=== PATIENT | male | born 1950 | race Caucasian/White ===

== ENCOUNTER 2018-05-08 20:21 | Emergency (ER) | payer MEDICARE ==
[2018-05-08] MEDS ORDERED: Lidocaine 2% with EPINEPHrine 1:100,000 20 ML MDV INJECT ONE (20:40)
--- NOTE | 2018-05-08 20:57 | EDM.PDOC ---
ED HPI GENERAL MEDICAL PROBLEM - General Chief Complaint: Head Injury Stated Complaint: FALL/HEAD INJURY Time Seen by Provider: 05/08/18 20:25 Source of Information: Reports: Patient, EMS, EMS Notes Reviewed History Limitations: Reports: No Limitations - History of Present Illness INITIAL COMMENTS - FREE TEXT/NARRATIVE: Pt was brought in by EMS. According to patient he was at gas station and he slipped on a puddle of water and fell backwards and hit his head hard. Sustained a cut over the back of the head. Also he claims he has been bleeding form his right ear since the fall. No loss of consciousness. No vomiting, but has been slightly nauseous and a dull headache. Does c/o vertigo if he moves his head. No blurry vision . No neck pain. No weakness in the extremities. No tingling or numbness. No other injuries or pain.Pt's last tetanus was 2011. Pt did have recurrent infection in his right ear in the past.Pt has had C-spine fusion and cannot move his neck, but no neck pain or stiffness. Onset: Today Onset Date: 05/08/18 Onset Time: 20:00 Location: Reports: Head Quality: Reports: Ache Severity: Mild Associated Symptoms: Reports: Headaches, Nausea/Vomiting. Denies: Confusion, Chest Pain, Cough, Diaphoresis, Fever/Chills, Malaise, Rash, Seizure, Shortness of Breath, Syncope, Weakness Posterior Headache Pain Score (Numeric/FACES): 7 - Related Data Allergies Allergy/AdvReac Type Severity Reaction Status Date / Time No Known Allergies Allergy Verified 05/08/18 20:27 Home Meds: Home Meds Aspirin 81 mg PO DAILY 05/08/18 [History] FLUoxetine [PROzac] 10 mg PO DAILY 05/08/18 [History] Pantoprazole [ProTONIX] 40 mg PO BIDMEALS 05/08/18 [History] busPIRone [Buspar] 5 mg PO BID 05/08/18 [History] ED ROS GENERAL - Review of Systems Review Of Systems: See Below Constitutional: Denies: Fever, Chills, Malaise, Weakness HEENT: Reports: Vertigo, Other (bleeding form rigth EAC. Actively. No CSF in the blood.). Denies: Ear Discharge, Ear Pain, Rhinitis, Throat Pain, Throat Swelling, Vision Change Respiratory: Denies: Shortness of Breath, Wheezing, Cough, Sputum Cardiovascular: Denies: Chest Pain, Lightheadedness Endocrine: Denies: Fatigue GI/Abdominal: Denies: Abdominal Pain, Constipation, Diarrhea, Difficulty Swallowing, Flatus, Nausea, Vomiting : Denies: Dysuria, Flank Pain Musculoskeletal: Denies: Joint Pain, Joint Swelling Skin: Denies: Bruising, Pruritis, Rash ED EXAM, HEAD INJURY - Physical Exam Exam: See Below Exam Limited By: No Limitations General Appearance: Alert, WD/WN, No Apparent Distress Head: Normocephalic, Scalp Lacerations (2cm laceration over the occipital region , actively bleeding. No bony deformity or crepitus felt.). No: Facial Abrasions , Facial Ecchymosis, Facial Lacerations Nexus Criteria: No: Posterior, Midline Cervical Tenderness, Evidence of Intoxication, Altered Level of Consciousness, Focal Neurological Deficit, Painful Distraction Injuries Eyes: Bilateral Eye: EOMI, PERRL Ears: Normal External Exam, Normal Canal, Hearing Grossly Normal, TM Blood. No : Mastoid Swelling, Mastoid Tenderness Nose: Normal Inspection, Normal Mucousa, No Blood. No: Nasal Deformity, Nasal Discharge Throat/Mouth: Normal Inspection, Normal Lips, Normal Teeth, Normal Gums, Normal Oropharynx, Normal Voice, No Airway Compromise Neck: Non-Tender, Normal Alignment, Normal Inspection, Limited Range of Motion ( from C spine fusion) Respiratory: No Respiratory Distress, Lungs Clear, Normal Breath Sounds, No Accessory Muscle Use, Chest Non-Tender Cardiovascular: Normal Peripheral Pulses, Regular Rate, Rhythm, No Edema, No Gallop, No JVD, No Murmur, No Rub GI/Abdominal Exam: Normal Bowel Sounds, Soft, Non-Tender, No Organomegaly, No Distention, No Abnormal Bruit, No Mass Extremities: Normal Inspection, Normal Range of Motion, Non-Tender, No Pedal Edema, Normal Capillary Refill Neurologic: ice guard skating rink II-XII nml As Tested, No Motor/Sensory Deficits, Alert, Normal Mood/Affect, Oriented x 3. No: Sensory Deficit Skin: Normal Color - Karol Coma Score Best Eye Response ([place]): (4) Open Spontaneously Best Verbal Response (Karol): (5) Oriented Best Motor Response ([place]): (6) Obeys Commands Karol Total: 15 ED LACERATION/WOUND & JENI PROC - Laceration/Wound Repair Head Lac/wound length in cm: 2 (occipital) Appearance: Linear Distal NVT: Neuro & Vascular Intact Anesthetic Type: Local Local Anesthesia - Lidocaine (Xylocaine): 1% with EPI Local Anesthetic Volume: 2cc Skin Prep: Providone-Iodine (Betadine) Exploration/Debridement/Repair: Wound Explored Closed with: Dahlia # of Sutures: 5 Tetanus Status Addressed: Yes Complications: No Course - Vital Signs Text/Narrative:: Pt has sustained a 2cm laceration over the occiput, which was cleaned and 5 dahlia applied and the bleeding is under control. Pt does have active bleeding form his right EAC. No CSF leak noted. Pt has headache, which he rates at 7/10 and vertigo.His GCS is 15. CT head does show right temporal fracture with blood in the right mastoid air cells. Also he has sustained sub-arachanoid bleed with Small 3mm sub-dural hematoma. CT C-spine is negative for acute fracture. Chest Xray 1 view portable appears normal. Pt has received 1 gm IV rocephin, as he has skull fracture. And Zofran 4mg IV times one. I did contact [facility] and discuss patient with neurosurgeon, , Trauma Surgeon and also have discussed patient with Emergency room physician Dr. Morales. has agreed to accept patient. Pt's GCS is 15, he is c/o of headache is worsening, Will give him dilaudid 0.5mg IV. Pt is hemodynamically and neurologically stable. Pt will be transferred to [facility] by [facility] flight. Further care per Dr. Morales. Last Recorded V/S: Last Vital Signs Temp 97.2 F 05/08/18 20:24 Pulse 70 05/08/18 22:01 Resp 16 05/08/18 22:01 BP 165/83 H 05/08/18 22:01 Pulse Ox 98 05/08/18 22:01 - Orders/Labs/Meds Orders: Active Orders 24 hr Category Date Time Status Cervical Spine wo Cont [CT] Stat Exams 05/08/18 20:51 Ordered Chest 1V Frontal [CR] Stat Exams 05/08/18 22:33 Ordered Head wo Cont [CT] Stat Exams 05/08/18 20:36 Taken cefTRIAXone [Rocephin] 1 gm Med 05/08/18 22:33 Ordered Sodium Chloride 0.9% [Normal Saline] 50 ml IV ONETIME Medication Orders Ceftriaxone Sodium 1 gm/ (Sodium Chloride) 50 mls @ 100 mls/hr IV ONETIME ONE Stop: 05/08/18 23:02 Meds: Medications Generic Name Dose Route Start Last Admin Trade Name Floyd PRN Reason Stop Dose Admin Ceftriaxone Sodium 1 gm/ 50 mls @ 100 mls/hr 05/08/18 22:33 Sodium Chloride IV 05/08/18 23:02 ONETIME ONE Departure - Departure Time of Disposition: 11:30 Disposition: DC/Tfer to Acute Hospital 02 Condition: Fair Clinical Impression: Scalp laceration, Subarachnoid hemorrhage, Subdural hemorrhage, Temporal bone fracture - Discharge Information *PRESCRIPTION DRUG MONITORING PROGRAM REVIEWED*: Not Applicable *COPY OF PRESCRIPTION DRUG MONITORING REPORT IN PATIENT LUISA: Not Applicable Instructions: Head Injury, Adult Forms: ED Department Discharge - Problem List & Annotations (1) Scalp laceration SNOMED Code(s): 470632719 Code(s): S01.01XA - LACERATION WITHOUT FOREIGN BODY OF SCALP, INITIAL ENCOUNTER Status: Acute Current Visit: Yes (2) Subarachnoid hemorrhage SNOMED Code(s): 962264255 Code(s): I60.9 - NONTRAUMATIC SUBARACHNOID HEMORRHAGE, UNSPECIFIED Status: Acute Current Visit: Yes (3) Subdural hemorrhage SNOMED Code(s): 37325471 Code(s): I62.00 - NONTRAUMATIC SUBDURAL HEMORRHAGE, UNSPECIFIED Status: Acute Current Visit: Yes (4) Temporal bone fracture SNOMED Code(s): 95177501 Code(s): S02.19XA - OTH FRACTURE OF BASE OF SKULL, INIT FOR CLOS FX Status : Acute Current Visit: Yes - Problem List Review Problem List Initiated/Reviewed/Updated: Yes - My Orders Last 24 Hours: My Active Orders 05/08/18 20:36 Head wo Cont [CT] Stat 05/08/18 20:51 Cervical Spine wo Cont [CT] Stat 05/08/18 22:33 Chest 1V Frontal [CR] Stat cefTRIAXone [Rocephin] 1 gm Sodium Chloride 0.9% [Normal Saline] 50 ml IV ONETIME - Assessment/Plan Last 24 Hours: My Active Orders 05/08/18 20:36 Head wo Cont [CT] Stat 05/08/18 20:51 Cervical Spine wo Cont [CT] Stat 05/08/18 22:33 Chest 1V Frontal [CR] Stat cefTRIAXone [Rocephin] 1 gm Sodium Chloride 0.9% [Normal Saline] 50 ml IV ONETIME Assessment:: s/p fall with occipital laceration with right temporal bone fracture with pneumocephalus, with sub-arachanoid bleed. Plan: Pt has sustained a 2cm laceration over the occiput, which was cleaned and 5 dahlia applied and the bleeding is under control. Pt does have active bleeding form his right EAC. No CSF leak noted. Pt has headache, which he rates at 7/10 and vertigo.His GCS is 15. CT head does show right temporal fracture with blood in the right mastoid air cells. Also he has sustained sub-arachanoid bleed with Small 3mm sub-dural hematoma. CT C-spine is negative for acute fracture. Chest Xray 1 view portable appears normal. Pt has received 1 gm IV rocephin, as he has skull fracture. And Zofran 4mg IV times one. I did contact [facility] and discuss patient with neurosurgeon, , Trauma Surgeon and also have discussed patient with Emergency room physician Dr. Morales. has agreed to accept patient. Pt's GCS is 15, he is c/o of headache is worsening, Will give him dilaudid 0.5mg IV. Pt is hemodynamically and neurologically stable. Pt will be transferred to [facility] by [facility] ambulance. Further care per Dr. Morales.
[2018-05-08] MEDS ORDERED: cefTRIAXone 1 GM in Sodium Chloride 0.9% 50 ML IV ONE (22:33)
[2018-05-08] MEDS ORDERED: Ondansetron 4 MG/2 ML SDV IVPUSH ONE (23:00)
[2018-05-08] MEDS ORDERED: Ondansetron 4 MG/2 ML SDV ONE (23:00)
[2018-05-08] MEDS ORDERED: HYDROmorphone 2 MG/ML Syringe IVPUSH ONE (23:02)
[2018-05-08] MEDS ORDERED: HYDROmorphone 2 MG/ML Syringe ONE (23:09)
[2018-05-09] MEDS ORDERED: HYDROmorphone 2 MG/ML Syringe IVPUSH ONE (00:09)
--- NOTE | 2018-05-10 11:16 | CR ---
DATE OF SERVICE: 05/08/18 CLINICAL DATA: fall AP CHEST: No priors. The heart size is within normal limits. The aorta is calcified and ectatic. There are two densely nodules in the left lower lung consistent with prior granulomatous disease. The lungs are otherwise clear. No pneumothorax. No pleural effusions. [id number] [facility]
--- NOTE | 2018-05-10 11:21 | CT ---
DATE OF SERVICE: 05/08/18 CLINICAL DATA: fall CERVICAL SPINE CT: Multislice axial acquisition was performed. Axial images and sagittal and coronal reformations are reviewed. The patient is status post C3-4 and C4-5 discectomy and fusion. There is internal fixation of C3, C4, and C5 with anterior metal plates and multiple screws. There is 3 mm anterolisthesis of C3 on C4. No acute fracture or dislocation. There is degenerative disc disease at the C5-6 and C6-7 levels. There are degenerative changes involving the atlantoaxial articulation. There is mild facet joint hypertrophy at multiple levels. The soft tissues are unremarkable. The visualized lungs are clear. IMPRESSION: No acute abnormalities. [id number] [facility]
--- NOTE | 2018-05-10 11:52 | CT ---
DATE OF SERVICE: 05/08/18 CLINICAL DATA: FALL UNENHANCED BRAIN CT: Multislice acquisition through the brain without IV contrast was performed. No priors. There is a craniectomy defect in the left parietal region. There is blood density material noted in sulci in the right frontal region, both temporal lobes, and within the sylvian fissures. There is also some blood density material noted within the suprasellar cistern. There are small subdural hematomas noted in the right anterior cranial fossa laterally and within the right middle cranial fossa. There is also a small amount of gas noted in the right middle cranial fossa. These findings are consistent with the patient's history of trauma. There is lucency through the right temporal bone that extends through the mastoid air cells. There also appears to be a fracture involving the mandibular fossa on the right. No other acute abnormalities. IMPRESSION: Abnormal exam. See above. The patient's physician was notified of the findings by telephone and by [facility] preliminary radiology report. [id number] [facility]
== END 2018-05-09 00:36 ==
LOC: LB.ED 20:21
DX: S06.6X0A Traumatic subarachnoid hemorrhage without loss of consciousness, initial encounter (principal); S06.5X0A Traumatic subdural hemorrhage without loss of consciousness, initial encounter; S02.19XA Other fracture of base of skull, initial encounter for closed fracture; S01.01XA Laceration without foreign body of scalp, initial encounter; Z79.82 Long term (current) use of aspirin; W01.198A Fall on same level from slipping, tripping and stumbling with subsequent striking against other object, initial encounter
CPT/HCPCS: 12001; 70450; 71045; 72125; 96365; 96375; 99282; 99284; A0425; A0429; J0696; J1170; J2405; J7050